=== PATIENT | male | born 1935 | race Caucasian/White ===

== ENCOUNTER 2016-12-03 09:58 | Emergency (ER) | payer OTHER ==
[2016-12-03 10:49] LABS: URINE BILIRUBIN NEGATIVE (NEGATIVE); URINE BLOOD 4+ (NEGATIVE); URINE GLUCOSE (UA) NEGATIVE (NEGATIVE); URINE LEUKOCYTE ESTERASE 2+ (NEGATIVE); URINE NITRITE POSITIVE (NEGATIVE); URINE PROTEIN 2+ (NEGATIVE); URINE UROBILINOGEN NORMAL (0-1 mg/dl)
[2016-12-03 10:50] LABS: URINE APPEARANCE CLOUDY; URINE COLOR RED; URINE EPITHELIAL CELLS 0-1 /hpf; URINE RBC PACKED /hpf; URINE WBC PACKED /hpf
[2016-12-03 10:51] LABS: URINE BACTERIA 4+
--- NOTE | 2016-12-03 11:12 | CT ---
Name: REID ADLER Exam: Noncontrast renal stone CT Comparison: None Clinical History: Painful hematuria Procedure: Helical CT using multidetector technique was applied to the abdomen and pelvis without contrast. Sagittal, axial and coronal reconstructions were obtained. An automated dose reduction technique was used to minimize patient radiation dose. Findings: CT abdomen (noncontrast): Scarring is noted present in the left lung base. Heart is not enlarged. There is no pericardial effusion. Noncontrast images liver show no suspicious focal normality. There is a 4 mm calcification at the right hepatic lobe cortex which is of no clinical concern. The gallbladder is not distended. There is no suspicious biliary dilation. Pancreas, spleen, adrenal glands, IVC and portal vein are within normal limits on this noncontrast exam. There is a small amount of perinephric stranding bilaterally and symmetrically. The right renal pelvis is minimally prominent. There is mild dilation of the ureters in a segmental fashion. A small amount of periureteral stranding is present. There is no calculus. There is atherosclerosis of the abdominal aorta. There is dense atherosclerosis of the aortic branches. There is a small hiatal hernia. Small bowel and stomach are normal. Colonic diverticulosis is present without current evidence for diverticulitis. There is a small fat filled umbilical hernia. There is no free air, free fluid or suspicious adenopathy. 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 There is an old moderate anterior compression fracture of L1. CT pelvis (noncontrast): The prostate is enlarged. Urinary bladder is distended to the umbilicus. At the anterior superior margin of the bladder, there are 2 diverticuli measuring 2.2 and 1.7 cm in size. Bladder wall is thick and there is stranding around the urinary bladder. The ureters are intermittently dilated. There is no calculus. Seminal vesicles are symmetric. Diverticulosis of the colon is present without current evidence for diverticulitis. Small bowel and appendix are normal. Dense atherosclerosis is identified. There is no free air, free fluid or suspicious adenopathy. Impression: 1. Features compatible with chronic outlet obstruction. The prostate is enlarged. The urinary bladder is distended to the level of the umbilicus there are 2 small diverticuli. Given the fairly cystic stranding, cystitis must be excluded. 2. Mild intermittent dilation of the ureters with a minimal right hydronephrosis. Reflux nephropathy could certainly have this appearance. There is no ureteral or renal calculus. 3. Old compression fracture L1 4. Very severe diffuse atherosclerosis 5. Distal colonic diverticulosis without current evidence for diverticulitis. 6. 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 Small hiatal hernia Note: The above report was uploaded to [facility]'s electronic medical records system at 1108 hours.
[2016-12-03] MEDS ORDERED: CEPHALEXIN 250 MG CAPSULE ONE (11:54)
== END 2016-12-03 12:37 | disposition home or self-care (01) ==
LOC: ED 09:58
DX: N39.0 Urinary tract infection, site not specified (principal); B96.89 Other specified bacterial agents as the cause of diseases classified elsewhere; R31.9 Hematuria, unspecified; I10 Essential (primary) hypertension; Z87.891 Personal history of nicotine dependence

== ENCOUNTER 2016-12-11 03:22 | Emergency (ER) | payer OTHER ==
[2016-12-11] MEDS ORDERED: LIDOCAINE 2% UROJECT 10 ML ONE (03:39)
[2016-12-11 04:03] LABS: SPECIFIC GRAVITY 1.015 (1.001-1.030); URINE BILIRUBIN NEGATIVE (NEGATIVE); URINE BLOOD 4+ (NEGATIVE); URINE GLUCOSE (UA) NEGATIVE (NEGATIVE); URINE LEUKOCYTE ESTERASE 2+ (NEGATIVE); URINE NITRITE NEGATIVE (NEGATIVE); URINE PROTEIN 1+ (NEGATIVE); URINE UROBILINOGEN NORMAL (0-1 mg/dl)
[2016-12-11 04:07] LABS: URINE APPEARANCE BLOODY; URINE COLOR YELLOW
[2016-12-11 04:09] LABS: URINE BACTERIA 1+; URINE RBC >100 /hpf; URINE WBC >100 /hpf
[2016-12-11] MEDS ORDERED: CIPROFLOXACIN 250 MG TABLET ONE (04:26)
[2016-12-11] MEDS ORDERED: TAMSULOSIN HCL 0.4 MG CAPSULE.DR ONE (04:26)
== END 2016-12-11 04:55 | disposition home or self-care (01) ==
LOC: ED 03:22
DX: N39.0 Urinary tract infection, site not specified (principal); R33.9 Retention of urine, unspecified; Z87.891 Personal history of nicotine dependence; N40.0 Benign prostatic hyperplasia without lower urinary tract symptoms
CPT/HCPCS: 87086; 81001; 99283 ×2; 51702; A9270 ×2

== ENCOUNTER 2016-12-23 18:20 | Emergency (ER) | payer OTHER ==
[2016-12-23 19:33] LABS: ABSOLUTE NEUTROPHIL COUNT 10.6 K/mm3 (1.8-7.7); BASO # 0.1 K/mm3 (0.0-0.2); BASO % 0.5 % (0.2-1.0); EOS # 0.2 (0.0-0.5); EOS % 1.8 % (0.9-2.9); HEMATOCRIT 34.5 % (32.0-52.0); HEMOGLOBIN 12.6 gm/l (14.0-18.0); IMM NEUT # 0.1 K/mm3 (0-0.2); IMM NEUT% 0.7 % (0-1); LYMPH # 1.5 (1.0-4.8); LYMPH % 11.4 % (15-45); MEAN CELL VOLUME 85.2 fl (80.0-94.0); MEAN CORPUSCULAR HEMOGLOBIN 31.1 pg (27.0-31.0); MEAN CORPUSCULAR HGB CONC 36.5 g/dl (33.0-37.0); MEAN PLATELET VOLUME 8.5 fl (7.4-10.4); MONO # 0.9 (0.0-0.8); MONO % 6.4 % (4-12); NEUT % 79.2 % (43-75); PLATELET COUNT 402 K/mm3 (130-400); RED CELL DISTRIBUTION WIDTH 11.8 % (11.5-14.5)
[2016-12-23 19:42] LABS: ALB/GLOB RATIO 1.4 (>1.0); CALCIUM 9.5 mg/dL (8.6-10.3)
[2016-12-23 20:40] LABS: CALCIUM 9.5 mg/dL (8.6-10.3)
== END 2016-12-23 22:12 | disposition short-term general hospital (02) ==
LOC: ED 18:20
DX: R10.12 Left upper quadrant pain (principal); E87.1 Hypo-osmolality and hyponatremia; I10 Essential (primary) hypertension; E11.9 Type 2 diabetes mellitus without complications; Z79.4 Long term (current) use of insulin; Z79.84 Long term (current) use of oral hypoglycemic drugs; Z87.891 Personal history of nicotine dependence